=== PATIENT | female | born 1995 | race Caucasian/White ===

== ENCOUNTER 2019-05-22 16:00 | Inpatient (IN) ==
[2019-05-22] MEDS ORDERED: TERBUTALINE SULFATE 1 MG/1 ML SDV SUBCUT PRN (18:49)
[2019-05-22] MEDS ORDERED: LIDOCAINE HCL 2 % 10 ML JELLY URO-JECT TOPICAL PRN (18:49)
[2019-05-22] MEDS ORDERED: Carboprost Inj 250 MCG/ML AMP IM PRN (18:49)
[2019-05-22] MEDS ORDERED: CITRIC ACID/SODIUM CITRATE 30 ML CUP PO PRN (18:49)
[2019-05-22] MEDS ORDERED: NALOXONE 0.4 MG/1 ML VIAL IVP PRN (18:49)
[2019-05-22] MEDS ORDERED: CALCIUM CARBONATE 500 MG (TUMS) CHEWABLE TABLET PO PRN (18:49)
[2019-05-22] MEDS ORDERED: BUTORPHANOL TARTRATE 2 MG/1 ML VIAL IVP PRN (18:49)
[2019-05-22] MEDS ORDERED: ONDANSETRON 4 MG/2 ML VIAL IVP PRN (18:49)
[2019-05-22] MEDS ORDERED: FAMOTIDINE 20 MG/2 ML VIAL IVP PRN ×2 (18:49)
[2019-05-22] MEDS ORDERED: Nalbuphine Inj 20 MG/ML Ampule IVP PRN (18:49)
[2019-05-22] MEDS ORDERED: LIDOCAINE W/ SODIUM BICARB 0.5 ML SYR SUBD PRN (18:49)
[2019-05-22] MEDS ORDERED: CefOXitin Inj 2 GM in Sodium Chloride 0.9% 100 ML IV PRN (18:49)
[2019-05-22] MEDS ORDERED: diphenhydrAMINE 50 MG/1 ML VIAL IVP PRN (18:49)
[2019-05-22] MEDS ORDERED: METHYLERGONOVINE MALEATE 0.2 MG/1 ML VIAL IM PRN (18:49)
[2019-05-22] MEDS ORDERED: Lidocaine 1% 10 MG/ML - 20 ML VIAL SUBCUT PRN (18:49)
[2019-05-22] MEDS ORDERED: Phenylephrine Inj 50 MCG in Sodium Chloride 0.9% vial 0.5 ML IVP PRN (18:49)
[2019-05-22] MEDS ORDERED: Naloxone Inj 0.01 MG in Sodium Chloride 0.9% vial 1 ML IVP PRN (18:49)
[2019-05-22] MEDS ORDERED: Metoclopramide Inj 10 MG/2 ML VIAL IV PRN (18:49)
[2019-05-22] MEDS ORDERED: OXYTOCIN 10 UNIT/1 ML IM PRN (18:49)
[2019-05-22] MEDS ORDERED: MISOPROSTOL 200 MCG TABLET RECTAL PRN (18:49)
[2019-05-22] MEDS ORDERED: Oxytocin 20 Units + LR 20 UNIT/1,000 ML BAG IV SCH (19:00)
[2019-05-22 20:26] LABS: Hematocrit [HCT] 41.5 % (37.0-47.0); MEAN CORPUSCULAR HGB CONC 33.7 g/dL (33-37); MEAN CORPUSCULAR VOLUME 86.8 FL (81-99); MEAN PLATELET VOLUME 9.2 FL (7.4-12.2); RED BLOOD COUNT 4.78 10^6/uL (4.20-5.40)
[2019-05-22] MEDS: Misoprostol Tab 100 MCG TAB VAGINAL PRN (21:01)
[2019-05-22] MEDS: Lactated Ringers-OB Dept 1,000 ML PRIMARY IV SCH (21:18)
[2019-05-23] MEDS: Misoprostol Tab 100 MCG TAB VAGINAL PRN (01:26)
[2019-05-23] MEDS: fentaNYL Inj 100 MCG/2 ML VIAL IVP PRN ×6 (06:36→19:23)
[2019-05-23] MEDS ORDERED: HYDROXYZINE PAMOATE 25 MG CAPSULE PO PRN ×2 (09:15→17:51)
[2019-05-23] MEDS ORDERED: Oxytocin 20 Units + LR 20 UNIT/1,000 ML BAG IV SCH (13:30)
[2019-05-23] MEDS: Lactated Ringers-OB Dept 1,000 ML PRIMARY IV SCH ×2 (19:24→23:24)
[2019-05-23] MEDS ORDERED: Fent/Bupiv 2mcg/0.0625% Epid 250 ML ONE (20:16)
[2019-05-23] MEDS ORDERED: fentaNYL 2 MCG/BUPIVACAINE 0.0625%/NS 0.9% 250 ML BAG EPIDURAL SCH (21:00)
[2019-05-24] MEDS: fentaNYL Inj 100 MCG/2 ML VIAL IVP PRN ×2 (01:35→02:31)
[2019-05-24] MEDS ORDERED: CALCIUM CARBONATE 500 MG (TUMS) CHEWABLE TABLET PO PRN (05:56)
[2019-05-24] MEDS ORDERED: Lidocaine 1% 10 MG/ML - 20 ML VIAL INTRADERM PRN (05:56)
[2019-05-24] MEDS ORDERED: LANOLIN HPA 40 GM TUBE TOPICAL PRN (05:56)
[2019-05-24] MEDS ORDERED: Ondansetron ODT Tab 4 MG TAB PO PRN (05:56)
[2019-05-24] MEDS ORDERED: ACETAMINOPHEN 325 MG TABLET PO PRN (05:56)
[2019-05-24] MEDS ORDERED: Nalbuphine Inj 20 MG/ML Ampule IVP PRN (05:56)
[2019-05-24] MEDS ORDERED: ONDANSETRON 4 MG/2 ML VIAL IVP PRN (05:56)
[2019-05-24] MEDS ORDERED: Oxytocin 20 Units + LR 20 UNIT/1,000 ML BAG IV SCH (05:56)
[2019-05-24] MEDS ORDERED: BENZOCAINE/MENTHOL SPRAY 56 GM BOTTLE TOPICAL PRN (05:56)
[2019-05-24] MEDS ORDERED: LIDOCAINE HCL 2 % 10 ML JELLY URO-JECT TOPICAL PRN (05:56)
[2019-05-24] MEDS ORDERED: diphenhydrAMINE 50 MG/1 ML VIAL IVP PRN (05:56)
[2019-05-24] MEDS: GLYCERIN/WITCH HAZEL 1 BOX TOPICAL PRN (06:29)
[2019-05-24] MEDS: Lactated Ringers-OB Dept 1,000 ML PRIMARY IV SCH (06:50)
[2019-05-24] MEDS: HYDROcodone-APAP 5 MG -325 MG TABLET PO PRN ×3 (07:20→22:58)
[2019-05-24] MEDS: diphenhydrAMINE 25 MG CAPSULE PO PRN ×2 (07:34→14:26)
[2019-05-24] MEDS: IBUPROFEN 800 MG TABLET PO PRN ×2 (10:00→19:32)
[2019-05-25 03:32] VITALS: TEMP 98.1
[2019-05-25 05:21] LABS: Hematocrit [HCT] 36.7 % (37.0-47.0); Hemoglobin [HGB] 12.2 g/dL (12.0-16.0); MEAN CORPUSCULAR HGB CONC 33.2 g/dL (33-37); MEAN CORPUSCULAR VOLUME 88.4 FL (81-99); MEAN PLATELET VOLUME 9.4 FL (7.4-12.2); RED BLOOD COUNT 4.15 10^6/uL (4.20-5.40)
[2019-05-25] MEDS: IBUPROFEN 800 MG TABLET PO PRN (07:34)
[2019-05-25] MEDS: HYDROcodone-APAP 5 MG -325 MG TABLET PO PRN (07:35)
[2019-05-25] MEDS: GLYCERIN/WITCH HAZEL 1 BOX TOPICAL PRN (07:39)
[2019-05-25 07:45] VITALS: BP 124/52; RESP 18; O2SAT 99
[2019-05-25] MEDS ORDERED: Prenatal Multivitamin Tab 1 TAB TAB PO SCH (09:00)
[2019-05-25] MEDS ORDERED: DOCUSATE 100 MG CAPSULE PO SCH (09:00)
== END 2019-05-25 12:33 | disposition home or self-care (01) | DRG 807 ==
LOC: OBIP 18:57
PROVIDERS: ADMIT Student in an Organized Health Care Education/Training Program; ATTEND Student in an Organized Health Care Education/Training Program